=== PATIENT | female | born 1970 | race African-American/Black ===

== ENCOUNTER 2022-04-18 15:07 | Emergency (ER) | payer MEDICAID ==
[~2022-04-18] VITALS: Ht 170.2 cm; Wt 122.5 kg
[2022-04-18] MEDS ORDERED: ACETAMINOPHEN 325 MG TABLET PO ONE (15:30)
[2022-04-18] MEDS ORDERED: IBUPROFEN 600 MG TABLET PO ONE (15:30)
[2022-04-18] MEDS ORDERED: ACETAMINOPHEN ES 500 MG TABLET ONE (15:31)
[2022-04-18] MEDS ORDERED: IBUPROFEN 600 MG TABLET ONE (15:31)
--- NOTE | 2022-04-18 15:34 | NUR ---
PT SEEN AND EVALUATED BY DR STEPHENSON. MEDICATED FOR PAIN PER MD ORDER.
--- NOTE | 2022-04-18 17:38 | NUR ---
TEST RESULTS REVIEWED BY MD WITH PATIENT; SURGICAL SHOE RENDERED PER MD ORDER. DISCHARGE INSTRUCTIONS RENDERED WELL INSTRUCTIONS FOR FOLLOW UP CARE.
[2022-04-18 17:39] VITALS: BP 127/52
== END 2022-04-18 17:40 | disposition home or self-care (01) ==
LOC: ER 15:07
DX: M79.675 Pain in left toe(s) (principal); M25.562 Pain in left knee; M25.572 Pain in left ankle and joints of left foot; Z91.81 History of falling
CPT/HCPCS: 73610; 73630; A4663; A9150